=== PATIENT | female | born 1960 | race Caucasian/White ===

== ENCOUNTER → 2022-04-02 | Outpatient (CLI) | payer BC ==
[~2022-04-02] MED LIST: CALCAVITDA; FISH1000; UBID10; VITAMIN B122500 MC1
== END | disposition home or self-care (01) ==
LOC: LAB SHORT 11:33 → PLD 11:33
DX: C44.619 Basal cell carcinoma of skin of left upper limb, including shoulder (principal)
CPT/HCPCS: 88305